=== PATIENT | female | born 1975 | race Caucasian/White ===

== ENCOUNTER → 2016-10-20 | Outpatient (CLI) | payer BC ==
[~2016-10-20] MED LIST: LIDOCAINE 2% (20mg/ml) 5ml PF SDV ONE; LOSA25TA34 PO; METO-277 PO; PROPOFOL 500mg 50 ML IV ONE
== END ==
LOC: SCU 08:00 → EDSTATUS 10:00
PROVIDERS: ATTEND Specialist
DX: Z53.9 Procedure and treatment not carried out, unspecified reason (principal)